=== PATIENT | female | born 1990 | race Caucasian/White ===

== ENCOUNTER 2018-04-21 03:25 | Emergency (ER) | payer OTHER ==
[~2018-04-21] VITALS: Ht 167.6 cm; Wt 127.0 kg
[2018-04-21 05:22] VITALS: BP 100/63
== END 2018-04-21 05:22 | disposition home or self-care (01) ==
LOC: M.ERS 03:25
DX: S81.012A Laceration without foreign body, left knee, initial encounter (principal); F17.200 Nicotine dependence, unspecified, uncomplicated; W00.0XXA Fall on same level due to ice and snow, initial encounter; Y93.89 Activity, other specified; Y92.89 Other specified places as the place of occurrence of the external cause; Y99.8 Other external cause status